=== PATIENT | female | born 1990 | race Native Hawaiian/Other Pacific Islander ===

== ENCOUNTER 2020-12-01 16:49 | Outpatient (CLI) | payer OTHER | END 2020-12-01 19:35 | disposition home or self-care (01) | LOC: RAD 16:49 | PROVIDERS: ATTEND Nurse Practitioner Primary Care | DX: R05.8 Other specified cough (principal) ==

== ENCOUNTER 2022-03-26 08:39 | Outpatient (CLI) | payer OTHER | END 2022-03-26 18:59 | disposition home or self-care (01) | LOC: US 08:39 | PROVIDERS: ATTEND Nurse Practitioner Family | DX: E80.6 Other disorders of bilirubin metabolism (principal); E05.90 Thyrotoxicosis, unspecified without thyrotoxic crisis or storm ==

== ENCOUNTER 2022-11-14 10:08 | Outpatient (CLI) | payer OTHER ==
[2022-11-14 10:25] LABS: PLATELET COUNT 180 K/uL (152-353)
== END 2022-11-14 19:50 | disposition home or self-care (01) ==
LOC: LABW 10:08
PROVIDERS: ATTEND Family Medicine
DX: J01.90 Acute sinusitis, unspecified (principal)
CPT/HCPCS: 36415; 80048; 85027